=== PATIENT | female | born 1945 | race Caucasian/White ===

== ENCOUNTER → 2019-09-07 | Outpatient (CLI) | payer OTHER, MEDICAID ==
[~2019-09-07] MED LIST: AMIT10TA6 PO; CANA100T OR; CAR3125T OR; ENAL20TA PO; GLIP5TAB12 PO; INSLISPI SC; INSU75SU2 SC; SIMV-8 PO
[2019-09-07 12:22] LABS: Basophils # (auto) 0.1 uL; Basophils % (auto) 0.8 % (0.0-2.0); Eosinophils # (auto) 0.1 uL; Eosinophils % (auto) 1.1 % (0.0-7.0); Hematocrit 46.6 % (36.0-46.0); Hemoglobin 15.6 g/dL (12.2-16.2); Lymphocytes # (auto) 1.3 uL; Lymphocytes % (auto) 18.3 % (10.0-50.0); Mean Corpuscular Hemoglobin 29.5 pg (28.0-32.0); Mean Corpuscular Hgb Conc. 33.3 g/dL (32.0-36.0); Mean Corpuscular Volume 88.5 fL (80.0-100.0); Monocytes # (auto) 0.4 uL; Monocytes % (auto) 6.3 % (0.0-12.0); Neutrophils # (auto) 5.1 uL; Neutrophils % (auto) 73.5 % (37.0-80.0); Nucleated Red Blood Cells % 0.1 %; Platelet Count (auto) 262 10^3/uL (140-450); Red Blood Cells 5.27 10^6/uL (4.0-5.20); Red Cell Distribution Width 14.9 % (11.8-14.3); White Blood Cell 6.9 10^3/uL (4.4-10.8)
[2019-09-07 12:25] LABS: Urine Bacteria NONE SEEN /hpf (None Seen); Urine Blood Negative /uL (Negative); Urine Specific Gravity 1.016 (1.001-1.035); Urine WBC 2 /hpf (0 - 5)
[2019-09-07 13:04] LABS: Calcium 9.1 mg/dL (8.5-10.1); Potassium 3.4 mmol/L (3.5-5.1)
[2019-09-07 13:07] LABS: Free T4 (Free Thyroxine) 0.89 ng/dL (0.89-1.76)
[2019-09-07 13:08] LABS: BUN/Creatinine Ratio 14.5; Bilirubin, Total 0.3 mg/dL (0.2-1.0); Folate (Folic Acid) > 24.00 ng/mL (5.38-24); Total Protein 8.4 g/dL (6.4-8.2)
== END | disposition home or self-care (01) ==
LOC: LAB 11:58
PROVIDERS: ATTEND Internal Medicine
DX: H66.90 Otitis media, unspecified, unspecified ear (principal); E11.9 Type 2 diabetes mellitus without complications; I10 Essential (primary) hypertension; Z88.5 Allergy status to narcotic agent; Z87.891 Personal history of nicotine dependence; Z83.3 Family history of diabetes mellitus
CPT/HCPCS: 36415; 80053; 81001; 82607; 82746; 83036; 84439; 84443; 85025; 85652

== ENCOUNTER → 2020-01-26 | Outpatient (CLI) | payer OTHER ==
[2020-01-26 10:30] LABS: Albumin 3.4 g/dL (3.4-5.0); Potassium 3.9 mmol/L (3.5-5.1); Uric Acid 4.7 mg/dL (2.6-6.0)
[2020-01-26 10:38] LABS: BUN/Creatinine Ratio 15.9; Bilirubin, Total 0.4 mg/dL (0.2-1.0); Total Protein 7.9 g/dL (6.4-8.2)
== END | disposition home or self-care (01) ==
LOC: LAB 09:36
PROVIDERS: ATTEND Internal Medicine
DX: E11.22 Type 2 diabetes mellitus with diabetic chronic kidney disease (principal); N18.3 Chronic kidney disease, stage 3 (moderate); E11.21 Type 2 diabetes mellitus with diabetic nephropathy
CPT/HCPCS: 36415; 80053; 80061; 82043; 83036; 84550

== ENCOUNTER → 2020-02-10 | Outpatient (CLI) | payer OTHER | END | disposition home or self-care (01) | LOC: LAB 08:49 | PROVIDERS: ATTEND Internal Medicine | DX: Z01.818 Encounter for other preprocedural examination (principal) | CPT/HCPCS: 36415; 82565; 84520 ==

== ENCOUNTER 2020-02-27 23:33 | Inpatient (IN) | payer BC, OTHER ==
[~2020-02-27] VITALS: Ht 154.9 cm; Wt 70.6 kg
--- NOTE | 2020-02-27 11:45 | NUR ---
PATIENT ARRIVED TO THE UNIT BY DONNY, REPORT RECEIVED BY RN FROM [facility] AND EMT. PATIENT CURRENTLY IS AWAKE, ALERT AND ORIENTED, UNLABORED BREATHING. POC EXPLAINED TO PATIENT. EXPLAINED TO PATIENT TO CALL FOR HELP BY USING THE CALL LIGHT NEEDED. BED ON LOWEST POSITION, SIDE RAILS UP.
[~2020-02-27 23:33] MED LIST changes: -ENAL20TA PO; +ENAL20TA8 PO
[2020-02-28] VITALS (7 sets, daily range): BP systolic 138–154; BP diastolic 57–77
[2020-02-28] MEDS ORDERED: DEXTROSE (50%) 50ML SYRG IV PRN (00:30)
[2020-02-28] MEDS ORDERED: DOCUSATE SOD 100 MG CAP PO PRN (00:30)
[2020-02-28] MEDS ORDERED: ACETAMINOPHEN 325 MG TAB PO PRN (00:30)
[2020-02-28] MEDS ORDERED: ONDANSETRON HCL 4 MG/2 ML VIAL IV PRN (00:30)
--- NOTE | 2020-02-28 00:30 | NUR ---
HOSPITALIST DR SANCHES AT BED SIDE.
[2020-02-28] MEDS ORDERED: IPRATROPIUM BROM 0.5 MG/2.5ML INH SOL NEB PRN (01:00)
[2020-02-28] MEDS ORDERED: ALBUTEROL SULF 2.5 MG/0.5ML(0.5%) NEB SOLN NEB PRN (01:00)
--- NOTE | 2020-02-28 01:15 | NUR ---
Respiratory note: ASSESSED PT FOR PRN TX, PT WAS AWAKE NO RESP DISTRESS NOTED. HR 63, RR 16, SPO2 92% ON ROOM AIR. BS ARE CLEAR. NO INDICATION FOR TX AT THIS TIME. PT KNOWS TO HAVE RT PAGE IF TX IS NEEDED.
[2020-02-28] MEDS: SODIUM CHLORIDE 0.9% 1,000 ML IV SCH ×2 (01:35→17:16)
--- NOTE | 2020-02-28 03:47 | NUR ---
Blood sugar checked 150, patient would like to wait till the morning to receive insulin, closer to breakfast.
[2020-02-28] MEDS: InsuLIN REG 1unit/0.01ml Soln (100units/ml) SC SCH ×5 (03:50→22:00)
[2020-02-28] MEDS: ACCU-CHEK COMFORT CURVE STRIP VI SCH ×5 (03:50→22:09)
[2020-02-28 05:46] LABS: Basophils # (auto) 0 10 ^3/uL (0-0.2); Basophils % (auto) 0.5 % (0.0-2.0); Eosinophils # (auto) 0.2 10 ^3/uL (0-0.8); Hematocrit 40.8 % (36.0-46.0); Hemoglobin 13.8 g/dL (12.2-16.2); Lymphocytes # (auto) 2.1 10 ^3/uL (0.4-5.4); Lymphocytes % (auto) 25.1 % (10.0-50.0); Mean Corpuscular Hemoglobin 29.4 pg (28.0-32.0); Mean Corpuscular Hgb Conc. 33.7 g/dL (32.0-36.0); Mean Corpuscular Volume 87.2 fL (80.0-100.0); Monocytes # (auto) 0.5 10 ^3/uL (0-1.3); Monocytes % (auto) 6.4 % (0.0-12.0); Neutrophils # (auto) 5.6 10 ^3/uL (1.6-8.6); Nucleated Red Blood Cells % 0.1 %; Platelet Count (auto) 279 10^3/uL (140-450); Red Blood Cells 4.68 10^6/uL (4.0-5.20); Red Cell Distribution Width 14.5 % (11.8-14.3); White Blood Cell 8.4 10^3/uL (4.4-10.8)
[2020-02-28 05:59] LABS: Potassium 4.1 mmol/L (3.5-5.1)
[2020-02-28 06:06] LABS: BUN/Creatinine Ratio 14.5; Calcium 8.7 mg/dL (8.5-10.1)
--- NOTE | 2020-02-28 07:25 | NUR ---
Opening Shift Note Assumed care of patient, awake and alert. No S/S of distress/SOB or pain. Instructed on POC and to call for assist PRN, will continue to monitor for changes Q1hr and PRN. Seizure precautions are in place, bed is set in lowest locked position with side rails up x 2 for safety and call light is within reach.
--- NOTE | 2020-02-28 09:27 | NUR ---
IV insertion IV access obtained, via clean sterile technique by inserting 20 gauge catheter at the left forearm after one attempt. IV secured properly. No trauma to site. Patient tolerated procedure well. IV removal IV DC'd at the right forearm with clean sterile technique, catheter fully intact. Pressure dressing applied to site. Patient tolerated well.
--- NOTE | 2020-02-28 09:51 | NUR ---
Spoke to patient's family member Ziyad, spouse. After verifying patient information password provided Izyad with an update on patient POC. Family member was able to provide med rec from home, read back for verification. Will proceed to update and document medications.
[2020-02-28] MEDS ORDERED: CARV12.544 PO (09:54)
[2020-02-28] MEDS ORDERED: CLON0.1T PO (09:57)
[2020-02-28] MEDS ORDERED: TRAM50TA2 PO (09:57)
[2020-02-28] MEDS ORDERED: AMITRIPTYLINE HCL 10 MG TAB PO SCH (10:00)
[2020-02-28] MEDS: ENALAPRIL MALEATE 10 MG TAB PO SCH (10:18)
[2020-02-28] MEDS: CARVEDILOL 3.125 MG TAB PO SCH ×2 (10:19→22:08)
--- NOTE | 2020-02-28 11:10 | NUR ---
Respiratory note: PT ASSESSED FOR PRN MEDNEB TX AT THIS TIME. NO DISTRESS NOTED. MEDNEB NOT INDICATED AT THIS TIME. SPO2 92% ON RA HR 83 RR 16 B/S DIMINISHED. PT AWARE TO HAVE RT PAGED IF THEY BECOME SOB.
[2020-02-28] MEDS ORDERED: hydrALAZINE HCL 20 MG/ML VL IV PRN (12:45)
--- NOTE | 2020-02-28 15:09 | NUR ---
special technical operations officer at bedside
--- NOTE | 2020-02-28 15:55 | NUR ---
Paged To make aware of critical lab value troponin 0.645, awaiting call back.
--- NOTE | 2020-02-28 16:43 | NUR ---
Patient currently ambulating in hallway with PT No signs/symptoms of distress/SOB noted.
--- NOTE | 2020-02-28 16:46 | NUR ---
Re-paged Currently awaiting call back.
--- NOTE | 2020-02-28 17:55 | NUR ---
Spoke to on-call hospitalist Jordi Clancy NP made aware of troponin level 0.645. New orders received and read back for verification. Will proceed to carry out orders.
--- NOTE | 2020-02-28 18:04 | NUR ---
Sent face sheet down for tele box assignment.
--- NOTE | 2020-02-28 18:20 | NUR ---
Urine sample sent to lab.
[2020-02-28] MEDS ORDERED: LORazepam 2MG/ML-1ML VIAL IV PRN (19:15)
[2020-02-28 20:19] LABS: Amphetamine Screen, Urine NEGATIVE (NEGATIVE); Barbiturate Scree,Urine NEGATIVE (NEGATIVE); Benzodiazephine Screen, Urine POSITIVE (NEGATIVE); Cannabinoid Screen, Urine POSITIVE (NEGATIVE); Cocaine Screen, Urine NEGATIVE (NEGATIVE); Opiate Scree,Urine NEGATIVE (NEGATIVE); Phencyclidine Screen, Urine NEGATIVE (NEGATIVE)
--- NOTE | 2020-02-28 20:20 | NUR ---
Respiratory note: PT ASSESSED FOR PRN MED NEB TX. HR 70, RR 18, SPO2 97% ON RA. NO SIGNS OF ANY RESPIRATORY DISTRESS NOTED. ADVISED PT TO CALL IF TX IS NEEDED.
[2020-02-28] MEDS: ATORVASTATIN 20 MG TAB PO SCH (22:08)
[2020-02-28] MEDS: ZOLPIDEM TARTRATE 5 MG TAB PO PRN (22:08)
[2020-02-29] VITALS (7 sets, daily range): BP systolic 131–161; BP diastolic 63–84
[2020-02-29] MEDS: InsuLIN REG 1unit/0.01ml Soln (100units/ml) SC SCH ×4 (05:38→22:03)
[2020-02-29] MEDS: ACCU-CHEK COMFORT CURVE STRIP VI SCH ×4 (05:38→22:01)
[2020-02-29 06:17] LABS: Potassium 3.8 mmol/L (3.5-5.1)
[2020-02-29 06:29] LABS: BUN/Creatinine Ratio 10.9; Calcium 8.8 mg/dL (8.5-10.1)
[2020-02-29] MEDS: ASPirin 81 mg TAB PO SCH (09:39)
[2020-02-29] MEDS: SODIUM CHLORIDE 0.9% 1,000 ML IV SCH (09:39)
[2020-02-29] MEDS: ENALAPRIL MALEATE 10 MG TAB PO SCH (09:40)
[2020-02-29] MEDS: CARVEDILOL 3.125 MG TAB PO SCH ×2 (09:41→21:53)
[2020-02-29] MEDS ORDERED: ADENOSINE 60 MG in GIVE UN-DILUTED 0 ML IV STA (10:43)
--- NOTE | 2020-02-29 11:55 | NUR ---
ELECTROENCEPHALOGRAM COMPLETED IN STRESS LAB. PRIMARY RN AWARE.
--- NOTE | 2020-02-29 17:30 | NUR ---
Dr. Martinez in for Neurology. States patient is cleared for discharge from his standpoint
--- NOTE | 2020-02-29 17:34 | NUR ---
DR. MENDES AT BEDSIDE TO DISCUSS PLAN OF CARE WITH PATIENT.
--- NOTE | 2020-02-29 18:36 | NUR ---
ASSESSED PT @ THIS TIME FOR PRN MED NEB TX. PT IS AWAKE AND ALERT AND SITTING UP IN BED. SHE STATES HER BREATHING IS DOING FINE. NO DISTRESS NOTED. CURRENTLY ON R/A SPO2 93%, HR 83, RR 18 AND BS ARE DIMINISHED T/O. SHE IS AWARE TO CALL IF SHE FEELS SOB.
[2020-02-29] MEDS: ATORVASTATIN 20 MG TAB PO SCH (21:53)
[2020-02-29] MEDS: ZOLPIDEM TARTRATE 5 MG TAB PO PRN (21:54)
[2020-03-01 05:00] VITALS: BP 129/94
[2020-03-01 06:22] LABS: Magnesium 2.1 mg/dL (1.6-2.6); Potassium 4.2 mmol/L (3.5-5.1)
[2020-03-01 06:27] LABS: BUN/Creatinine Ratio 18.3
[2020-03-01] MEDS: ACCU-CHEK COMFORT CURVE STRIP VI SCH ×2 (06:31→11:52)
[2020-03-01] MEDS: InsuLIN REG 1unit/0.01ml Soln (100units/ml) SC SCH ×2 (06:32→11:55)
[2020-03-01 09:00] VITALS: BP 129/49
[2020-03-01] MEDS: ASPirin 81 mg TAB PO SCH (10:11)
[2020-03-01] MEDS: ENALAPRIL MALEATE 10 MG TAB PO SCH (10:12)
[2020-03-01] MEDS: CARVEDILOL 3.125 MG TAB PO SCH (10:12)
--- NOTE | 2020-03-01 11:45 | NUR ---
DR MAHAN AT BEDSIDE TO DISCUSS PLAN OF CARE WITH PATIENT.
[2020-03-01] MEDS ORDERED: ASPI81CH43 PO (12:23)
[2020-03-01 12:32] VITALS: BP 143/79
--- NOTE | 2020-03-01 13:28 | NUR ---
Discharge instructions given as ordered. Encourage to follow up with Primary health provider Dr. Cardona with in one week and cardiology with Dr. Claros in one to two weeks as instructed. All questions and concerns addressed. Patient verbalized understanding. Medication reconciliation form completed and copy given to patient. IV removed with catheter intact, pressure dressing applied. Telemetry unit returned to ICU. Patient taken to vehicle via wheelchair with all personal belongings, accompanied by staff and Ziyad. No distress noted at time of departure.
--- NOTE | 2020-03-01 15:50 | NUR ---
assessment Patient discharged home prior to being assessed. Addendum: 03/01/20 at 1551 by Fabiana CADE Amended: Links added.
== END 2020-03-01 13:30 | disposition home or self-care (01) | DRG 637 ==
LOC: WEST WING 23:33 → TELE-WESTW 02-28 18:08
PROVIDERS: ADMIT Hospitalist; ATTEND Internal Medicine
DX: E11.649 Type 2 diabetes mellitus with hypoglycemia without coma (principal); G93.41 Metabolic encephalopathy; I21.4 Non-ST elevation (NSTEMI) myocardial infarction; R44.2 Other hallucinations; G40.901 Epilepsy, unspecified, not intractable, with status epilepticus; N18.9 Chronic kidney disease, unspecified; E11.40 Type 2 diabetes mellitus with diabetic neuropathy, unspecified; N17.0 Acute kidney failure with tubular necrosis; F12.90 Cannabis use, unspecified, uncomplicated; E78.5 Hyperlipidemia, unspecified; E11.22 Type 2 diabetes mellitus with diabetic chronic kidney disease; E11.21 Type 2 diabetes mellitus with diabetic nephropathy; I12.9 Hypertensive chronic kidney disease with stage 1 through stage 4 chronic kidney disease, or unspecified chronic kidney disease; Z96.653 Presence of artificial knee joint, bilateral; Z80.1 Family history of malignant neoplasm of trachea, bronchus and lung; Z83.3 Family history of diabetes mellitus; Z82.49 Family history of ischemic heart disease and other diseases of the circulatory system; Z88.5 Allergy status to narcotic agent; Z79.4 Long term (current) use of insulin; Z87.891 Personal history of nicotine dependence
CPT/HCPCS: 36415; 70551; 78452; 80048; 80061; 80307; 82962; 83036; 83735; 83880; 84443; 84484; 85025; 87081; 93017; 93306; 95819; 97110; 97116; 97163; 97530; G0378; J0153; J1815

== ENCOUNTER 2020-04-17 23:58 | Inpatient (IN) | payer BC, OTHER ==
[~2020-04-17] VITALS: Ht 154.9 cm; Wt 71.3 kg
[2020-04-17 10:45] VITALS: BP 168/71
[2020-04-17 22:45] VITALS: BP 168/71
--- NOTE | 2020-04-17 22:50 | NUR ---
Direct Admit Note HOMERO ADAMS admitted to Telemetry unit as a direct admit per MD order. Patient oriented to FENG POSADA, primary RN, unit, room, bed, and unit policies regarding patient care and visiting hours. Patient now on continuous telemetry monitoring, tele box 3# weighed by asya and encouraged to call if they need something. All questions and concerns addressed, patient verbalized understanding. MD notified of patients arrival and admit orders received.
[~2020-04-17 23:58] MED LIST changes: -AMIT10TA6 PO; +ASPI81CH43 PO; -CANA100T OR; -CAR3125T OR; +CARV12.544 PO; +CLON0.1T PO; +ENAL20TA PO; -ENAL20TA8 PO; +TRAM50TA2 PO
--- NOTE | 2020-04-18 00:27 | NUR ---
JUANA HOSPITALIST FOR ADMITTING ORDERS PATIENT IS DIRECT ADMIT FROM [facility] FOR INSURANCE DIAGNOSIS IS RIGHT HIP FRACTURE POST FALL AT HOME ON 04/17/20 MORNING VITAL SIGNS WITHIN NORMAL LIMITS. BLOOD SUGAR IS 395; PATIENT HAD DINNER AT 1800 04/17/20 AND IS NOW NPO HX OF RIGHT TOTAL HIP ARTHOPLASTY BY CHRISTIANO SHAHID. HX ADMITTED TO [facility] FOR SEIZURE ACTIVITY 02/20 FOLLOWED BY LAMONT SHAHID. HX ECHO EF 50% 02/20 READ BY BARBARA SHAHID. PATIENT ARRIVED TO FLOOR ROOM 248 A 04/17/20 1889
[2020-04-18] MEDS ORDERED: NITROGLYCERIN 0.4 MG SL TAB SL PRN (01:00)
[2020-04-18] MEDS ORDERED: ACETAMINOPHEN 325 MG TAB PO PRN (01:00)
[2020-04-18] MEDS ORDERED: cloNIDine HCL 0.1 MG TAB PO PRN ×2 (01:00→13:00)
[2020-04-18] MEDS ORDERED: TEMAZEPAM 15 MG CAP PO PRN (01:00)
[2020-04-18] MEDS ORDERED: DEXTROSE (50%) 50ML SYRG IV PRN (01:00)
[2020-04-18] MEDS ORDERED: ONDANSETRON HCL 4 MG/2 ML VIAL IV PRN (01:00)
[2020-04-18] MEDS ORDERED: NALBUPHINE HCL 10 MG/1ml INJECTION IV PRN (01:00)
[2020-04-18 01:52] LABS: Basophils # (auto) 0.1 10 ^3/uL (0-0.2); Basophils % (auto) 1.1 % (0.0-2.0); Eosinophils # (auto) 0.1 10 ^3/uL (0-0.8); Hematocrit 41.3 % (36.0-46.0); Hemoglobin 13.7 g/dL (12.2-16.2); Lymphocytes # (auto) 2.1 10 ^3/uL (0.4-5.4); Lymphocytes % (auto) 24.4 % (10.0-50.0); Mean Corpuscular Hemoglobin 29.3 pg (28.0-32.0); Mean Corpuscular Hgb Conc. 33.1 g/dL (32.0-36.0); Mean Corpuscular Volume 88.5 fL (80.0-100.0); Monocytes # (auto) 0.7 10 ^3/uL (0-1.3); Monocytes % (auto) 8.5 % (0.0-12.0); Neutrophils # (auto) 5.7 10 ^3/uL (1.6-8.6); Nucleated Red Blood Cells % 0.2 %; Platelet Count (auto) 299 10^3/uL (140-450); Red Blood Cells 4.66 10^6/uL (4.0-5.20); Red Cell Distribution Width 14.3 % (11.8-14.3); White Blood Cell 8.8 10^3/uL (4.4-10.8)
[2020-04-18 02:12] LABS: Albumin 3.2 g/dL (3.4-5.0); BUN/Creatinine Ratio 17.1; Calcium 8.8 mg/dL (8.5-10.1); Potassium 4.6 mmol/L (3.5-5.1)
[2020-04-18 02:13] LABS: INR 1.01 (0.9-1.15); Partial Thromboplastin Time 28.5 sec (23.64-32.05)
[2020-04-18 02:14] LABS: Bilirubin, Total 0.5 mg/dL (0.2-1.0); Total Protein 7.6 g/dL (6.4-8.2)
[2020-04-18] MEDS ORDERED: GABA300C10 PO (03:44)
[2020-04-18] MEDS: HYDROcodone-ACET 5/325MG TAB PO PRN ×2 (04:10→15:37)
--- NOTE | 2020-04-18 04:24 | NUR ---
URINE SAMPLE SENT TO LAB
[2020-04-18 04:54] LABS: Urine Bacteria FEW /hpf (None Seen); Urine Blood Negative /uL (Negative); Urine Specific Gravity 1.018 (1.001-1.035); Urine WBC 16 /hpf (0 - 5)
[2020-04-18 05:00] VITALS: BP 132/91
--- NOTE | 2020-04-18 05:32 | NUR ---
RADIOLOGY AT BEDSIDE FOR CHEST XRAY
[2020-04-18] MEDS: ACCU-CHEK COMFORT CURVE STRIP VI SCH ×4 (06:16→23:22)
[2020-04-18] MEDS: InsuLIN REG 1unit/0.01ml Soln (100units/ml) SC SCH ×4 (06:17→23:27)
--- NOTE | 2020-04-18 07:24 | NUR ---
END OF SHIFT NOTE Endorse patient care to day shift RN. Patient AOX4, no S/S of distress or SOB.
[2020-04-18 08:00] VITALS: BP 148/74
[2020-04-18] MEDS: cefTRIAXone 1GM/50ML D5W 50 ML IV SCH (09:02)
[2020-04-18] MEDS: CARVEDILOL 12.5 MG TAB PO SCH ×2 (09:03→23:11)
[2020-04-18] MEDS: levETIRAcetam 500 MG TAB PO SCH ×2 (09:03→23:12)
[2020-04-18] MEDS: ENALAPRIL MALEATE 10 MG TAB PO SCH (09:03)
[2020-04-18] MEDS ORDERED: FAMOTIDINE 20 MG TAB PO SCH (10:00)
--- NOTE | 2020-04-18 10:00 | NUR ---
WOUND CARE NOTE: IN TO SEE PATIENT AT THIS TIME FOR SKIN INTEGRITY MONITORING. PATIENT ADMITTED TO [facility] WITH DIAGNOSIS OF RIGHT HIP FRACTURE. CURRENT CHUCK SCORE IS 16. PATIENT IS OBSERVED TO BE ABLE TO ASSIST WITH HER TURN/REPOSITIONING. PATIENT WILL BE UNDERGOING HIP REPAIR WITH DR. ALVARADO IN THE NEAR FUTURE. SHE IS ASSESSED TO BE WOUND FREE AT THIS TIME, WITH PINK BONY PROMINENCES. APPLIED OPTIFOAM GENTLE SACRAL DRESSING TO UPPER SACRUM PREVENTATIVE. SKIN/WOUND CARE PLAN IMPLEMENTED. RECOMMEND: FREQUENT TURN SCHEDULE Q 2 HOURS, PRN CONDITION PERMITS, WITH PRESSURE REDISTRIBUTION USING PILLOWS/WEDGES, BID/PRN APPLICATION WITH MOISTURE BARRIER CREAM, OPTIFOAM GENTLE SACRAL DRESSING PREVENTATIVE, FOAM OFFLOADING BOOTS, SKIN/WOUND CARE PLAN, CONTINUED MONITORING BY WOUND CARE TEAM.
[2020-04-18 12:00] VITALS: BP 126/69
--- NOTE | 2020-04-18 13:04 | NUR ---
pt seen by Dr. Rajput per Dr. Rajput pt can continue her blood pressure medication that she takes at home.
[2020-04-18] MEDS ORDERED: LORazepam 2MG/ML-1ML VIAL IV PRN (13:15)
--- NOTE | 2020-04-18 15:30 | NUR ---
Assessment Patient is a 75-year-old female who is alert and oriented. Prior to admission patient lived home with her Ziyad and functioned with assistance. Patient informed me she does not have any medical equipment now. Per patient she will return to her prior living arrangements and family will transport patient home. Advised patient there is a social service consult for wheelchair for 3 months. Informed patient clinical information will be reviewed by her medical group to see if she meets criteria for a wheelchair. Patient will benefit from outpatient or home health physical therapy. Informed patient she has a right to participate in all discharge planning. Patient verbalized understanding and agreed to discharge plan. Addendum: 04/18/20 at 1530 by MERLYN CADE Amended: Links added.
[2020-04-18 17:00] VITALS: BP 132/61
[2020-04-18] MEDS: Glucerna Carbsteady SHAKE Vanilla 8oz PO SCH (17:56)
[2020-04-18 22:12] VITALS: BP 138/71
--- NOTE | 2020-04-18 22:44 | NUR ---
PAGE HOSPITALIST PEPCID IS NOT AVAILABLE IN THE HOSPITAL AT THIS TIME MED NEEDS TO BE CHANGED
[2020-04-18] MEDS: GABAPENTIN 300 MG CAP PO SCH (23:11)
[2020-04-18] MEDS: ATORVASTATIN 20 MG TAB PO SCH (23:13)
[2020-04-18] MEDS: INSULIN LANTUS (GLARGINE) 1 /0.01ml (100units/ml) SC SCH (23:28)
--- NOTE | 2020-04-19 02:33 | NUR ---
OPENING SHIFT NOTE Resumed care of patient. Patient is Awake and alert. No signs and symptoms of distress or SOB noted. Bed is in lowest locked position, side rails up x2, call light with in reach. Updated patient on plan of care and patient verbalized understanding. Will continue to monitor Q1hr an PRN.
[2020-04-19 05:00] VITALS: BP 122/70
[2020-04-19 05:57] LABS: Basophils # (auto) 0 10 ^3/uL (0-0.2); Basophils % (auto) 0.6 % (0.0-2.0); Eosinophils # (auto) 0.1 10 ^3/uL (0-0.8); Eosinophils % (auto) 1.4 % (0.0-7.0); Hematocrit 41.9 % (36.0-46.0); Hemoglobin 13.9 g/dL (12.2-16.2); Lymphocytes # (auto) 1.9 10 ^3/uL (0.4-5.4); Lymphocytes % (auto) 22.8 % (10.0-50.0); Mean Corpuscular Hemoglobin 29.3 pg (28.0-32.0); Mean Corpuscular Hgb Conc. 33.2 g/dL (32.0-36.0); Mean Corpuscular Volume 88.2 fL (80.0-100.0); Monocytes # (auto) 0.8 10 ^3/uL (0-1.3); Monocytes % (auto) 9.9 % (0.0-12.0); Neutrophils # (auto) 5.5 10 ^3/uL (1.6-8.6); Neutrophils % (auto) 65.3 % (37.0-80.0); Nucleated Red Blood Cells % 0.2 %; Platelet Count (auto) 291 10^3/uL (140-450); Red Blood Cells 4.75 10^6/uL (4.0-5.20); Red Cell Distribution Width 14.5 % (11.8-14.3); White Blood Cell 8.4 10^3/uL (4.4-10.8)
[2020-04-19 06:26] LABS: Calcium 8.9 mg/dL (8.5-10.1); Potassium 4.3 mmol/L (3.5-5.1)
[2020-04-19] MEDS: ACCU-CHEK COMFORT CURVE STRIP VI SCH ×4 (07:04→21:39)
[2020-04-19] MEDS: InsuLIN REG 1unit/0.01ml Soln (100units/ml) SC SCH ×4 (07:06→21:40)
[2020-04-19] MEDS: INSULIN LANTUS (GLARGINE) 1 /0.01ml (100units/ml) SC SCH ×2 (07:06→21:39)
--- NOTE | 2020-04-19 07:50 | NUR ---
DR VALLES AT BED SIDE, PT IS SLEEPING, SAID WILL COME LATER TO SEE PT
[2020-04-19 08:00] VITALS: BP_SYST 120; BP_SYST 142; BP_DIAS 69; BP_DIAS 71
[2020-04-19] MEDS: Glucerna Carbsteady SHAKE Vanilla 8oz PO SCH ×3 (08:00→18:53)
--- NOTE | 2020-04-19 08:00 | NUR ---
ASSESSMENT NOTE PT IS ALERT TO SELF, PLACE AND SITUATION, FORGETFUL ON TIMES, HARD OF HEARING, ABLE TO SELF REPOSITION AND VERBALIS HER DEMANDS, PAIN 0/10 AT THIS TIME, FALL RISK PRECAUTIONS, CALL LIGHT WITHIN REACH
--- NOTE | 2020-04-19 08:14 | NUR ---
END OF SHIFT NOTE Endorse patient care to day shift RN. Patient AOX4, no S/S of distress or SOB.
[2020-04-19] MEDS: PANTOPRAZOLE 40 MG/10 ML VIAL INJ IV SCH (09:52)
[2020-04-19] MEDS: cefTRIAXone 1GM/50ML D5W 50 ML IV SCH (09:52)
[2020-04-19] MEDS: levETIRAcetam 500 MG TAB PO SCH ×2 (09:53→21:37)
[2020-04-19] MEDS: CARVEDILOL 12.5 MG TAB PO SCH ×2 (09:54→21:36)
[2020-04-19] MEDS: GABAPENTIN 300 MG CAP PO SCH ×2 (09:54→21:37)
[2020-04-19] MEDS: HYDROcodone-ACET 5/325MG TAB PO PRN (09:54)
[2020-04-19] MEDS: ENALAPRIL MALEATE 10 MG TAB PO SCH (09:55)
--- NOTE | 2020-04-19 10:15 | NUR ---
PHYSICAL THERAPY AT BED SIDE, INFORM ME THIS PT TRANSFER ONLY, NO WALKING, MAY USE BED BRO, ASSISTED PT TO GET OUT OF BED TO SIT ON CHAIR AT BED SIDE, NO DISTRESS NOTED, TOLERATED WELL
--- NOTE | 2020-04-19 10:40 | NUR ---
PHYSICAL THERAPY AT BED SIDE ASSISTING PT TO GO BACK TO BED
[2020-04-19 12:00] VITALS: BP 111/66
--- NOTE | 2020-04-19 12:00 | NUR ---
ASSESSMENT NOTE PT IS ALERT TO SELF, PLACE AND SITUATION, FORGETFUL ON TIMES, HARD OF HEARING, ABLE TO SELF REPOSITION AND VERBALIS HER DEMANDS, PAIN 0/10 AT THIS TIME, FALL RISK PRECAUTIONS, CALL LIGHT WITHIN REACH Addendum: 04/19/20 at 1825 by Sheyla Champion RN WRONG TIME ENTRY
[2020-04-19 17:00] VITALS: BP 126/79
--- NOTE | 2020-04-19 18:26 | NUR ---
CONSTIPATION PT HAS A SMALL HARD STOOL, COLACE GIVEN TO PT
[2020-04-19] MEDS ORDERED: DOCUSATE SOD 100 MG CAP PO ONE (18:30)
--- NOTE | 2020-04-19 19:35 | NUR ---
Opening Shift Note Assumed care of patient, awake and alert. No S/S of distress/SOB or pain. Instructed on POC and to call for assist PRN, will continue to monitor for changes. Patient is laying in bed, rails up x2, bed in lowest locked position, call light explained and within reach. Benson catheter in place, bag hanging below bladder. All questions answered, patient verbalized understanding.
[2020-04-19] MEDS: DOCUSATE SOD 100 MG CAP PO SCH (21:36)
[2020-04-19] MEDS: ATORVASTATIN 20 MG TAB PO SCH (21:37)
[2020-04-19 22:00] VITALS: BP 146/73
[2020-04-19] MEDS: HYDROcodone-ACET 10/325MG TAB PO PRN (23:22)
[2020-04-20 05:00] VITALS: BP 103/54
[2020-04-20] MEDS: InsuLIN REG 1unit/0.01ml Soln (100units/ml) SC SCH ×4 (06:20→21:54)
[2020-04-20] MEDS: INSULIN LANTUS (GLARGINE) 1 /0.01ml (100units/ml) SC SCH ×2 (06:20→21:55)
[2020-04-20] MEDS: ACCU-CHEK COMFORT CURVE STRIP VI SCH ×4 (06:21→21:55)
[2020-04-20 06:34] LABS: Basophils # (auto) 0.1 10 ^3/uL (0-0.2); Basophils % (auto) 0.7 % (0.0-2.0); Eosinophils # (auto) 0.2 10 ^3/uL (0-0.8); Eosinophils % (auto) 2.1 % (0.0-7.0); Hematocrit 40.5 % (36.0-46.0); Hemoglobin 13.6 g/dL (12.2-16.2); Lymphocytes # (auto) 2.2 10 ^3/uL (0.4-5.4); Lymphocytes % (auto) 27.4 % (10.0-50.0); Mean Corpuscular Hemoglobin 29.6 pg (28.0-32.0); Mean Corpuscular Hgb Conc. 33.6 g/dL (32.0-36.0); Monocytes # (auto) 0.9 10 ^3/uL (0-1.3); Monocytes % (auto) 10.9 % (0.0-12.0); Neutrophils # (auto) 4.7 10 ^3/uL (1.6-8.6); Neutrophils % (auto) 58.9 % (37.0-80.0); Platelet Count (auto) 270 10^3/uL (140-450); Red Cell Distribution Width 14.4 % (11.8-14.3)
[2020-04-20 06:56] LABS: Potassium 4.2 mmol/L (3.5-5.1)
[2020-04-20 07:21] LABS: BUN/Creatinine Ratio 21.2; Calcium 8.8 mg/dL (8.5-10.1)
[2020-04-20 08:00] VITALS: BP 114/65
[2020-04-20] MEDS: Glucerna Carbsteady SHAKE Vanilla 8oz PO SCH ×3 (08:00→18:00)
--- NOTE | 2020-04-20 08:00 | NUR ---
ASSESSMENT NOTE PT IS ALERT ORIENTED X4, HAVE HER HEARING AIDE ON, SMILING, LOOKING FORWARD TO GO HOME AND SEE HER , PT MADE AWARE NOT TO RASE HER RIGHT LEG OR SIDE WAYS, PHYSICAL THERAPY WILL GIVE THE EDUCATION OF HOW WILL PROGRESS IN USING HER LEG, AND HOME HEALTH WILL FOLLOW UP WITH HER, PT STATED DR ALVARADO TOLD ME TO STAY DOWN, GIVE IT TIME AND WILL HEAL, PAIN 01/10 AT THIS TIME, CALL LIGHT WITHIN REACH
[2020-04-20 08:44] VITALS: BP 119/55
[2020-04-20] MEDS: HYDROcodone-ACET 10/325MG TAB PO PRN (09:40)
--- NOTE | 2020-04-20 09:40 | NUR ---
RT HIP ACHING PAIN PT HAS ACHING PAIN 10/10, START TO CRY, NORCO GIVEN TO PT, PULL PT UP IN A FLAT POSITION, START TO FEEL LITTLE BIT BETTER, CONTINUE MONITORING PT, CALL LIGHT WITHIN REACH
[2020-04-20] MEDS: levETIRAcetam 500 MG TAB PO SCH ×2 (09:43→21:52)
[2020-04-20] MEDS: GABAPENTIN 300 MG CAP PO SCH ×2 (09:45→21:53)
[2020-04-20] MEDS: DOCUSATE SOD 100 MG CAP PO SCH ×2 (09:45→21:51)
[2020-04-20] MEDS: cefTRIAXone 1GM/50ML D5W 50 ML IV SCH (09:46)
[2020-04-20] MEDS: PANTOPRAZOLE 40 MG/10 ML VIAL INJ IV SCH (09:46)
[2020-04-20] MEDS: ENALAPRIL MALEATE 10 MG TAB PO SCH (10:00)
[2020-04-20] MEDS: CARVEDILOL 12.5 MG TAB PO SCH ×2 (10:00→21:52)
--- NOTE | 2020-04-20 10:00 | NUR ---
Pt unable to participate in therapy due to c/o pain level of 910. Addendum: 04/20/20 at 1545 by Rogers Santos PTA Amended: Links added.
[2020-04-20] MEDS ORDERED: ENOXAPARIN SOD 40 MG/0.4 ML SYRINGE SC ONE (11:30)
--- NOTE | 2020-04-20 11:30 | NUR ---
Pt unable to participate in therapy due to continued c/o pain level of 07/13. Addendum: 04/20/20 at 1545 by Rogers Santos PTA Amended: Links added.
--- NOTE | 2020-04-20 12:00 | NUR ---
DR ALVARADO AT BED SIDE FOLLOWING UP ON PT, INFORM PT THAT SHE NEED TO STAY ONE MORE DAY TO GET THE BLOOD SUGAR AND TH EPAIN UNDER CONTROL, AWAITING FOR DR SAMPSON TO LET HER KNOW
[2020-04-20 13:00] VITALS: BP 135/76
--- NOTE | 2020-04-20 15:37 | NUR ---
D/C planning Per consult for wheelchair, bed side commode and home health for transferring training. Clinical information was reviewed and approved by [facility]. Faxed clinical information to [facility], and [facility]. Per Tejal with [facility] [phone] patient has been accepted and will be seen within 24-48hrs upon d/c day. Per Jenn with [phone] they will deliver wheelchair to bedside and bedside commode to home. Authorization for [facility] agency is [id number] and for is [id number].
[2020-04-20 16:37] VITALS: BP 124/61
--- NOTE | 2020-04-20 18:50 | NUR ---
PT CONTINUE STABLE, CONTINUE MONITORING
--- NOTE | 2020-04-20 19:20 | NUR ---
Opening Shift Note Assumed care of patient, awake and and oriented. No S/S of distress/SOB. Instructed on POC and to call for assist PRN, will continue to monitor for changes. Patient is laying in bed, rails up x2, bed in lowest locked position, call light explained and within reach. Benson catheter in place, bag hanging below bladder. All questions answered, patient verbalized understanding.
[2020-04-20] MEDS: ATORVASTATIN 20 MG TAB PO SCH (21:52)
[2020-04-20 22:00] VITALS: BP 120/66
[2020-04-20] MEDS ORDERED: DEXTROSE (50%) 50ML SYRG IV PRN (22:30)
[2020-04-21 05:00] VITALS: BP 138/60
[2020-04-21 06:33] LABS: Basophils # (auto) 0 10 ^3/uL (0-0.2); Basophils % (auto) 0.5 % (0.0-2.0); Eosinophils # (auto) 0.1 10 ^3/uL (0-0.8); Eosinophils % (auto) 1.2 % (0.0-7.0); Hematocrit 41.5 % (36.0-46.0); Hemoglobin 13.5 g/dL (12.2-16.2); Mean Corpuscular Hemoglobin 28.7 pg (28.0-32.0); Mean Corpuscular Hgb Conc. 32.6 g/dL (32.0-36.0); Mean Corpuscular Volume 87.9 fL (80.0-100.0); Monocytes # (auto) 0.9 10 ^3/uL (0-1.3); Monocytes % (auto) 10.7 % (0.0-12.0); Neutrophils # (auto) 5.1 10 ^3/uL (1.6-8.6); Neutrophils % (auto) 62.6 % (37.0-80.0); Nucleated Red Blood Cells % 0.1 %; Platelet Count (auto) 282 10^3/uL (140-450); Red Blood Cells 4.72 10^6/uL (4.0-5.20); Red Cell Distribution Width 14.3 % (11.8-14.3); White Blood Cell 8.2 10^3/uL (4.4-10.8)
[2020-04-21] MEDS: HYDROcodone-ACET 10/325MG TAB PO PRN ×2 (06:38→13:35)
[2020-04-21] MEDS: ACCU-CHEK COMFORT CURVE STRIP VI SCH ×3 (06:38→12:00)
[2020-04-21] MEDS: InsuLIN REG 1unit/0.01ml Soln (100units/ml) SC SCH ×3 (06:39→12:00)
[2020-04-21 06:57] LABS: Calcium 8.8 mg/dL (8.5-10.1); Potassium 4.5 mmol/L (3.5-5.1)
[2020-04-21 07:00] LABS: BUN/Creatinine Ratio 20.9
[2020-04-21] MEDS ORDERED: INSULIN LANTUS (GLARGINE) 1 /0.01ml (100units/ml) SC SCH (07:00)
--- NOTE | 2020-04-21 07:35 | NUR ---
Opening Shift Note Assumed care of patient. Patient sleeping. No S/S of distress/SOB or pain. Bed in lowest position, side rails up x2. Seizure precautions in place. Will continue to monitor for changes Q1hr and PRN.
[2020-04-21 08:00] VITALS: BP 128/70
[2020-04-21] MEDS: Glucerna Carbsteady SHAKE Vanilla 8oz PO SCH ×2 (08:00→13:34)
[2020-04-21] MEDS: GABAPENTIN 300 MG CAP PO SCH (08:52)
[2020-04-21] MEDS: DOCUSATE SOD 100 MG CAP PO SCH (08:52)
[2020-04-21] MEDS: levETIRAcetam 500 MG TAB PO SCH (08:53)
[2020-04-21] MEDS: PANTOPRAZOLE 40 MG/10 ML VIAL INJ IV SCH (08:54)
[2020-04-21] MEDS: cefTRIAXone 1GM/50ML D5W 50 ML IV SCH (08:55)
[2020-04-21 09:00] VITALS: BP 128/70
--- NOTE | 2020-04-21 09:20 | NUR ---
IV insertion IV access obtained, via clean sterile technique by inserting 22 gauge catheter at LEFT FOREARM after 1 attempt. IV secured properly. No trauma to site. Patient tolerated well.
--- NOTE | 2020-04-21 09:45 | NUR ---
IV removal IV DC'd with clean sterile technique, catheter fully intact. Pressure dressing applied to site. Patient tolerated well.
[2020-04-21] MEDS ORDERED: ENOXAPARIN SOD 40 MG/0.4 ML SYRINGE SC SCH (10:00)
[2020-04-21] MEDS: ENALAPRIL MALEATE 10 MG TAB PO SCH (10:00)
[2020-04-21] MEDS: CARVEDILOL 12.5 MG TAB PO SCH (10:00)
--- NOTE | 2020-04-21 10:00 | NUR ---
Blood pressure meds held Blood pressure noted to be 87/62. Patient denied any symptoms. Reassessed blood pressure and was noted to be 117/59. Blood pressure medications held. Will continue to monitor.
[2020-04-21 13:00] VITALS: BP 141/69
--- NOTE | 2020-04-21 13:17 | NUR ---
Per hardware supplies sales representative from wheelchair will be deliver to bedside between 13:30-14:30.
--- NOTE | 2020-04-21 14:43 | NUR ---
Est energy needs [id number] kcal (23-25 kcal/kg BW 71.3kg) Est protein needs 43-57g (0.6-0.8g/kg BW 71.3kg r/t CKD no HD) Will reassess prn. Addendum: 04/21/20 at [address] Amended: Links added.
[2020-04-21 17:00] VITALS: BP 135/68
--- NOTE | 2020-04-21 17:20 | NUR ---
Discharge instructions given as ordered. Encourage to follow up with PMD as instructed. All questions and concerns addressed. Patient verbalized understanding. IV removed with catheter intact, pressure dressing applied, gilbert catheter removed. Telemetry unit returned to ICU. Patient taken to vehicle via wheelchair with all personal belongings, accompanied by staff and family member. No distress noted at time of departure.
== END 2020-04-21 17:20 | disposition home health service (06) | DRG 559 ==
LOC: TELE-EAST 23:58
PROVIDERS: ADMIT Nurse Practitioner; ATTEND Internal Medicine Nephrology
DX: M97.01XA Periprosthetic fracture around internal prosthetic right hip joint, initial encounter (principal); N17.0 Acute kidney failure with tubular necrosis; N39.0 Urinary tract infection, site not specified; J98.11 Atelectasis; E87.1 Hypo-osmolality and hyponatremia; E44.1 Mild protein-calorie malnutrition; E78.5 Hyperlipidemia, unspecified; G40.909 Epilepsy, unspecified, not intractable, without status epilepticus; N18.3 Chronic kidney disease, stage 3 (moderate); H91.90 Unspecified hearing loss, unspecified ear; E11.22 Type 2 diabetes mellitus with diabetic chronic kidney disease; E66.9 Obesity, unspecified; I12.9 Hypertensive chronic kidney disease with stage 1 through stage 4 chronic kidney disease, or unspecified chronic kidney disease; Z96.653 Presence of artificial knee joint, bilateral; Z96.641 Presence of right artificial hip joint; I99.8 Other disorder of circulatory system; W01.0XXA Fall on same level from slipping, tripping and stumbling without subsequent striking against object, initial encounter; Z80.1 Family history of malignant neoplasm of trachea, bronchus and lung; Z90.710 Acquired absence of both cervix and uterus; Z68.29 Body mass index [BMI] 29.0-29.9, adult; Z91.81 History of falling; Z83.3 Family history of diabetes mellitus; Y93.89 Activity, other specified; Z88.5 Allergy status to narcotic agent; Y92.098 Other place in other non-institutional residence as the place of occurrence of the external cause; Y99.8 Other external cause status
CPT/HCPCS: 36415; 71045; 73501; 73502; 80048; 80053; 81001; 82962; 83036; 84443; 85025; 85610; 85730; 87040; 87081; 87086; 97110; 97530; C9113; G0378; J0696; J1815